=== PATIENT | female | born 1970 | race Caucasian/White ===

== ENCOUNTER 2017-06-09 18:32 | Emergency (ER) | payer BC ==
[~2017-06-09] VITALS: Ht 172.7 cm; Wt 85.3 kg
--- NOTE | 2017-06-09 19:29 | PHYS DOC ---
Past Medical History Past Medical History: Kidney Stone Adult General Chief Complaint Chief Complaint: FLANK PAIN HPI HPI Patient is a 47 year old female presents to the emergency department with complaints of right flank pain. Patient states she was at work when she had acute onset of right flank pain. She states that is sensate with mild nausea. She states she does have a history of renal stones and was told that "the stone was so big he did not want remove her from my kidney". Patient reports no fever. No urinary symptoms. Review of Systems Review of Systems Constitutional: Denies fever or chills [] Eyes: Denies change in visual acuity, redness, or eye pain [] HENT: Denies nasal congestion or sore throat [] Respiratory: Denies cough or shortness of breath [] Cardiovascular: No additional information not addressed in HPI [] GI: Denies abdominal pain, complain of mild nausea without vomiting : Flank pain, Denies dysuria or hematuria [] Musculoskeletal: Denies back pain or joint pain [] Integument: Denies rash or skin lesions [] Neurologic: Denies headache, focal weakness or sensory changes [] Endocrine: Denies polyuria or polydipsia [] All other systems were reviewed and found to be within normal limits, except as documented in this note. Current Medications Current Medications Current Medications Medications (Trade) Dose Ordered Sig/Indra Start Time Stop Time Status Last Admin Dose Admin Ketorolac Tromethamine (Toradol) 30 mg 1X ONCE 06/09/17 19:30 06/09/17 19:31 DC 06/09/17 19:42 30 MG Ondansetron HCl (Zofran) 4 mg 1X ONCE 06/09/17 19:30 06/09/17 19:31 DC 06/09/17 19:43 4 MG Sodium Chloride 1,000 ml @ 1,000 mls/hr 1X ONCE 06/09/17 19:30 06/09/17 20:29 DC 06/09/17 19:42 1,000 MLS/HR Allergies Allergies Allergies Coded Allergies Type Severity Reaction Last Updated Verified Penicillins Allergy Intermediate 11/24/14 Yes Physical Exam Physical Exam Constitutional: Well developed, well nourished Neck: Normal range of motion, no tenderness, supple, no stridor. [] Cardiovascular:Heart rate regular rhythm, no murmur [] Lungs & Thorax: Bilateral breath sounds clear to auscultation [] Abdomen: Bowel sounds normal, soft, no tenderness, no masses, no pulsatile masses. [] Skin: Warm, dry, no erythema, no rash. [] Back: No tenderness, right CVA tenderness Neurologic: Alert and oriented X 3, normal motor function, normal sensory function, no focal deficits noted. [] Current Patient Data Vital Signs Vital Signs Date Time Temp Pulse Resp B/P (MAP) Pulse Ox O2 Delivery O2 Flow Rate FiO2 06/09/17 21:05 54 13 166/80 (108) 98 Room Air 06/09/17 19:48 98.4 98.4 Lab Values Laboratory Tests Test 06/09/17 19:25 06/09/17 19:40 Urine Collection Type Unknown Urine Color Yellow Urine Clarity Clear Urine pH 5.5 Urine Specific [place] >=1.030 Urine Protein 30 mg/dL (NEG-TRACE) Urine Glucose (UA) Negative mg/dL (NEG) Urine Ketones (Stick) Negative mg/dL (NEG) Urine Blood Large (NEG) Urine Nitrite Negative (NEG) Urine Bilirubin Negative (NEG) Urine Urobilinogen Dipstick 0.2 mg/dL (0.2 mg/dL) Urine Leukocyte Esterase Negative (NEG) Urine RBC 3-5 /HPF (0-2) Urine WBC Occ /HPF (0-4) Urine Squamous Epithelial Cells Many /LPF Urine Bacteria Few /HPF (0-FEW) Urine Hyaline Casts Occasional /HPF Urine Mucus Marked /LPF White Blood Count 13.4 x10^3/uL (4.0-11.0) H Red Blood Count 4.13 x10^6/uL (3.50-5.40) Hemoglobin 13.0 g/dL (12.0-15.5) Hematocrit 38.9 % (36.0-47.0) Mean Corpuscular Volume 94 fL (79-100) Mean Corpuscular Hemoglobin 32 pg (25-35) Mean Corpuscular Hemoglobin Concent 34 g/dL (31-37) Red Cell Distribution Width 12.8 % (11.5-14.5) Platelet Count 294 x10^3/uL (140-400) Neutrophils (%) (Auto) 77 % (31-73) H Lymphocytes (%) (Auto) 13 % (24-48) L Monocytes (%) (Auto) 8 % (0-9) Eosinophils (%) (Auto) 2 % (0-3) Basophils (%) (Auto) 1 % (0-3) Neutrophils # (Auto) 10.4 x10^3uL (1.8-7.7) H Lymphocytes # (Auto) 1.7 x10^3/uL (1.0-4.8) Monocytes # (Auto) 1.0 x10^3/uL (0.0-1.1) Eosinophils # (Auto) 0.2 x10^3/uL (0.0-0.7) Basophils # (Auto) 0.1 x10^3/uL (0.0-0.2) Sodium Level 140 mmol/L (136-145) Potassium Level 3.9 mmol/L (3.5-5.1) Chloride Level 103 mmol/L (98-107) Carbon Dioxide Level 25 mmol/L (21-32) Anion Gap 12 (6-14) Blood Urea Nitrogen 31 mg/dL (7-20) H Creatinine 1.8 mg/dL (0.6-1.0) H Estimated GFR (Cockcroft-Gault) 29.9 BUN/Creatinine Ratio 17 (6-20) Glucose Level 110 mg/dL (70-99) H Calcium Level 9.1 mg/dL (8.5-10.1) Total Bilirubin 0.3 mg/dL (0.2-1.0) Aspartate Amino Transferase (AST) 18 U/L (15-37) Alanine Aminotransferase (ALT) 22 U/L (14-59) Alkaline Phosphatase 84 U/L (46-116) Total Protein 7.6 g/dL (6.4-8.2) Albumin 3.6 g/dL (3.4-5.0) Albumin/Globulin Ratio 0.9 (1.0-1.7) L Laboratory Tests 06/09/17 19:40 Laboratory Tests 06/09/17 19:40 EKG EKG [] Radiology/Procedures Radiology/Procedures [][facility] [address] [place], [place] [id number] IMAGING REPORT Signed PATIENT: ROBERTA ELMORE ACCOUNT: [id number] : 1970 LOCATION: ER AGE: 47 SEX: F EXAM STATUS: REG ER ORD. PHYSICIAN: GRACY MARIE APRN REASON: right flank pain, hematuria PROCEDURE: CT ABDOMEN PELVIS WO CONTRAST Abdominal and Pelvis CT, Without Contrast: History: Right flank pain. Comparison: August 17, 2011. Procedure: Axial images are obtained of the abdomen and pelvis, without IV or oral contrast. CT Abdomen without Contrast: Findings: Evaluation of solid organs is limited without contrast. Evaluation of stomach and bowel is limited without oral contrast. Liver: Normal. Spleen: Normal. Pancreas: Normal. Adrenal Glands: Normal. Kidneys: There is an 11 mm stone in the right UPJ with moderate hydronephrosis and perinephric edema. This appears similar to the prior study. There is no free air or free fluid. There is no lymphadenopathy. Impression: Please see CT Pelvis without Contrast. End Impression. CT Pelvis without Contrast: Findings: The urinary bladder appears normal. There is no free fluid. There is no lymphadenopathy. There is no pericolonic inflammation identified. The urinary bladder is collapsed not well evaluated. The appendix is not well seen. Impression: 11 mm stone right UPJ with moderate hydronephrosis and perinephric edema. End impression PQRS Compliance Statement: One or more of the following individualized dose reduction techniques were utilized for this examination: 1. Automated exposure control 2. Adjustment of the mA and/or kV according to patient size 3. Use of iterative reconstruction technique Electronically signed by: Thomas Kulkarni III, MD (06/09/2017 8:58 PM) [facility] DICTATED and SIGNED BY: THOMAS KULKARNI III, MD DATE: 06/09/172050 CC: TALI BAR MD; GRACY MARIE APRN ~ Course & Med Decision Making Course & Med Decision Making Patient received Toradol 30 mg IV, 1 L normal saline for complete relief of pain. Her CT abdomen and is unchanged compared to her CT abdomen and pelvis in August 2011. She does have an 11 mm stone at the right UPJ with moderate hydronephrosis and perinephric neck edema. This is unchanged from her previous CT. At this time the patient elects to be discharged home with plan for follow- up outpatient urology. She is advised return to the emergency department his symptoms or concerns or worsening of current condition. She'll be discharged home with Naprosyn which she currently has a prescription for and Tylenol with codeine, one by mouth every 6 hours when necessary for pain. She'll referred to urology at [facility] as her previous urologist is no longer practicing in the area. Pertinent Labs and Imaging studies reviewed. ( See chart for details) [] Dragon Disclaimer Dragon Disclaimer This electronic medical record was generated, in whole or in part, using a voice recognition dictation system. Departure Departure Impression: Primary Impression: Renal lithiasis Disposition: HOME, SELF-CARE Condition: STABLE Referrals: TALI BAR MD (PCP) Patient Instructions: Kidney Stones Scripts Acetaminophen With Codeine (TYLENOL WITH CODEINE #3 TABLET) 1 Each Tablet 1 TAB PO PRN Q6HRS Y for PAIN, #12 TAB Prov: GRACY MARIE APRN 06/09/17 GRAYC MARIE APRN Jun 09, 2017 19:29
[2017-06-09] MEDS ORDERED: IV NORMAL SALINE 1000ML BAG 1,000 ML IV ONE (19:30)
[2017-06-09] MEDS ORDERED: ONDANSETRON PF 4 MG/2 ML VIAL. IV ONE (19:30)
[2017-06-09] MEDS ORDERED: KETOROLAC 30 MG/ML INJ. IV ONE (19:30)
[2017-06-09 19:35] LABS: BILIRUBIN,URINE NEGATIVE (NEG); GLUCOSE,URINE NEGATIVE (NEG); NITRITE,URINE NEGATIVE (NEG); PH,URINE 5.5; PROTEIN,URINE 30 mg/dL (NEG-TRACE); UROBILINOGEN,URINE 0.2 mg/dL (0.2 mg/dL)
[2017-06-09 19:48] LABS: BACTERIA,URINE FEW /HPF (0-FEW); SQUAMOUS EPITHELIAL CELL,UR MANY /LPF; WBC,URINE OCC /HPF (0-4)
[2017-06-09 20:05] LABS: BASO # 0.1 x10^3/uL (0.0-0.2); BASO % 1 % (0-3); EOS % 2 % (0-3); HEMATOCRIT 38.9 % (36.0-47.0); LYMPH # 1.7 x10^3/uL (1.0-4.8); LYMPH % 13 % (24-48); MEAN CORPUSCULAR HEMOGLOBIN 32 pg (25-35); MEAN CORPUSCULAR HGB CONC 34 g/dL (31-37); MEAN CORPUSCULAR VOLUME 94 fL (79-100); MONO % 8 % (0-9); NEUT % 77 % (31-73); PLATELET COUNT 294 x10^3/uL (140-400); RED BLOOD COUNT 4.13 x10^6/uL (3.50-5.40); RED CELL DISTRIBUTION WIDTH 12.8 % (11.5-14.5); WHITE BLOOD COUNT 13.4 x10^3/uL (4.0-11.0)
[2017-06-09 20:48] LABS: CALCIUM 9.1 mg/dL (8.5-10.1); CREATININE 1.8 mg/dL (0.6-1.0); GFR 29.9; POTASSIUM 3.9 mmol/L (3.5-5.1)
[2017-06-09 20:59] LABS: ALBUMIN 3.6 g/dL (3.4-5.0); ALBUMIN/GLOBULIN RATIO 0.9 (1.0-1.7); TOTAL BILIRUBIN 0.3 mg/dL (0.2-1.0); TOTAL PROTEIN 7.6 g/dL (6.4-8.2)
--- NOTE | 2017-06-09 21:01 | RAD ---
Abdominal and Pelvis CT, Without Contrast: History: Right flank pain. Comparison: August 17, 2011. Procedure: Axial images are obtained of the abdomen and pelvis, without IV or oral contrast. CT Abdomen without Contrast: Findings: Evaluation of solid organs is limited without contrast. Evaluation of stomach and bowel is limited without oral contrast. Liver: Normal. Spleen: Normal. Pancreas: Normal. Adrenal Glands: Normal. Kidneys: There is an 11 mm stone in the right UPJ with moderate hydronephrosis and perinephric edema. This appears similar to the prior study. There is no free air or free fluid. There is no lymphadenopathy. Impression: Please see CT Pelvis without Contrast. End Impression. CT Pelvis without Contrast: Findings: The urinary bladder appears normal. There is no free fluid. There is no lymphadenopathy. There is no pericolonic inflammation identified. The urinary bladder is collapsed not well evaluated. The appendix is not well seen. Impression: 11 mm stone right UPJ with moderate hydronephrosis and perinephric edema. End impression PQRS Compliance Statement: One or more of the following individualized dose reduction techniques were utilized for this examination: 1. Automated exposure control 2. Adjustment of the mA and/or kV according to patient size 3. Use of iterative reconstruction technique Electronically signed by: Juan Luis Fall III, MD (06/09/2017 8:58 PM) [facility]
[2017-06-09 21:05] VITALS: BP 166/80
[2017-06-09] MEDS ORDERED: ACET-704 PO (21:29)
== END 2017-06-09 21:40 | disposition home or self-care (01) ==
LOC: ER 18:32
DX: N20.0 Calculus of kidney (principal); Z87.442 Personal history of urinary calculi; Z88.0 Allergy status to penicillin
CPT/HCPCS: 36415; 74176; 80053; 81001; 85025; 96361; 96374; 96375; 99285; J1885; J2405; J7030

== ENCOUNTER → 2019-04-05 | Day surgery (SDC) | payer BC, OTHER ==
[~2019-04-05] VITALS: Ht 172.7 cm; Wt 86.0 kg
[~2019-04-05] MED LIST: ACET-704 PO; ALBU2.5V8 INH; ASPI1TAB31 PO; BUPIVACAINE MPF 0.25% 30 ML VIAL. ONE; BUPIVACAINE-EPI 0.25%-1:200000 MPF 30 ML VIAL. INJ ONE; CLINDAMYCIN 900MG PREMIX 50 ML IV ONE; FLUT9.9S NS; HYDR-3164 PO; HYDROmorphone 2 MG/ML VIAL IV PRN; IV RINGERS,LACTATED 1000ML 1,000 ML IV SCH; LIDOCAINE 1% PF 2 ML VIAL. ID PRN; LIDOCAINE 1% PF 30 ML VIAL. ONE; LISI10TA2 PO; MIDAZOLAM HCL/PF 2 MG/2 ML VIAL. ONE; MORPHINE SULFATE 2 MG/ML VIAL. IV PRN; ONDANSETRON PF 4 MG/2 ML VIAL. IV PRN; PROCHLORPERAZINE 10 MG/2 ML VIAL. IV PRN; PROPOFOL 20 ML IV ONE; PROPOFOL 50 ML IV ONE; RANI-376 PO; VANCOMYCIN 1GM IVPB FOR OMNI 250 ML IV PRN; fentaNYL PF VIAL 100 MCG/2 ML VIAL IV PRN
--- NOTE | 2019-04-05 08:33 | DISCH ---
DISCHARGE INSTRUCTIONS Condition on Discharge Condition on Discharge: Stable Activity After Discharge Activity Instructions for Disc: Other, see below (avoid hard grasp for next 2 weeks) Weight Bearing Status after Di: As tolerated Diet after Discharge Diet after Discharge: Regular Wound Incision Care Wound/Incision Care: Ice to area for comfort, Keep wound elevated, Do not change dressing (keep dressing clean and dry) Contacting the after DC Call your doctor for: Concerns you may have Follow-Up Follow up with: Dr. Lucia 2 weeks ALESSANDRA LUCIA MD Apr 05, 2019 08:33
[2019-04-05 08:35] VITALS: BP 130/77
--- NOTE | 2019-04-05 09:02 | PDOC4 ---
Operative Note Operative Note Date of surgery: 04/05/2019 Preoperative diagnosis: Right carpal tunnel syndrome and ganglion cyst right hand Postoperative diagnosis: Same with ganglion cyst originating from third finger flexor tendon sheath at A1 siena Operative procedure: Right carpal tunnel release excision ganglion cyst and trigger finger release third finger Surgeon: Khari Anesthesia: Fausto block Estimated blood loss: 2 mL Complications: None Specimens: Ganglion cyst to pathology Operative indications: Dominique has EMG documented carpal tunnel syndrome symptoms unresponsive to nonoperative management and a painful lump in the third to fourth webspace in her hand worse with grasping. It is suspicious for a ganglion cyst we went over possible operative treatments including a carpal tunnel release exploration and excision of the ganglion cyst and sending enough to pathology. We talked about the possibility of infection nerve or blood vessel damage and complete relief among other issues all her questions were answered she wishes to proceed with surgical evaluation and treatment. Text patient was identified procedure verified patient placed in supine position on the operating table. After adequate amounts of Fausto block anesthesia were administered the right upper extremity is prepped and draped in standard sterile fashion. After timeout was performed patient procedure identified and verified a longitudinal incision was made just distal to the distal palmar crease dissect ion carried out down to the transverse carpal ligament which was transected. Median nerve was noted to have moderate compression no synovitis associated with the flexor tendons complete release was verified both visually and palpably. A longitudinal incision was likewise made over the right hand mass and it was found to be a ganglion cyst originating from the third finger flexor tendon sheath in the area of the A1 siena. A trigger finger release was performed and the A1 siena along with the ganglion cyst wall was excised sharply carefully avoiding any neurovascular structures bleeding points were controlled by electrocautery thorough irrigation carried out normal saline solution both carpal tunnel and the ganglion incision were closed with nylon suture sterile dressings were applied fingers are noted be warm pink find deflation of tourniquet patient was returned to recovery room in stable condition having tolerated procedure well ALESSANDRA CRESPO MD Apr 05, 2019 09:02
--- NOTE | 2019-04-08 15:07 | PATHOLOGY ---
[facility] Accession Number: [id number] . 01 Material submitted: . hand - RIGHT HAND GANGLION CYST. Modifiers: right . 01 Clinical history: . Right hand pain . 02 Diagnosis: Segment of dense fibroconnective and fibroadipose tissue, right hand: - Ganglion cyst. (JPM/db; 04/08/2019) LBQ 04/08/2019 1010 Local . 02 Electronically signed: . Ashok Villeda MD, Pathologist NPI- [id number] . 01 Gross description: . Received in formalin labeled "Dominique Valdes, right hand ganglion cyst," is a segment of pale-durán soft tissue measuring 1.3 x 0.6 x 0.4 cm. The specimen is inked, longitudinally bisected, and entirely submitted in cassette A1. Upon sectioning, no underlying cystic cavity is grossly evident. (TSD; 04/05/2019) . TOB/TOB 04/05/2019 1731 Local . 02 Pathologist provided ICD-10: M67.441 . 02 CPT . 058108 Specimen Comment: A courtesy copy of this report has been sent to Specimen Comment: [phone], . Specimen Comment: Report sent to / DR BAR Performed at: 01 [facility] [address], [place], [place] [id number] MD Nicholas Myers MD Phone: [phone] Performed at: 02 [facility] [address], [place] [id number] MD Ashok Villeda MD Phone: [phone]
== END ==
LOC: SURG 06:00
PROVIDERS: ATTEND Orthopaedic Surgery
DX: G56.01 Carpal tunnel syndrome, right upper limb (principal); M67.441 Ganglion, right hand; M65.331 Trigger finger, right middle finger; J45.909 Unspecified asthma, uncomplicated; I12.9 Hypertensive chronic kidney disease with stage 1 through stage 4 chronic kidney disease, or unspecified chronic kidney disease; N18.3 Chronic kidney disease, stage 3 (moderate); E78.5 Hyperlipidemia, unspecified; Z87.442 Personal history of urinary calculi; Z98.890 Other specified postprocedural states; Z72.89 Other problems related to lifestyle; Z91.041 Radiographic dye allergy status
CPT/HCPCS: 26055; 26160; 64721; 81025; 88304; J2250; J2704; J3490

== ENCOUNTER 2019-04-15 19:39 | Emergency (ER) | payer BC, OTHER ==
[~2019-04-15] VITALS: Ht 172.7 cm; Wt 86.2 kg
[~2019-04-15 19:39] MED LIST changes: -BUPIVACAINE MPF 0.25% 30 ML VIAL. ONE; -BUPIVACAINE-EPI 0.25%-1:200000 MPF 30 ML VIAL. INJ ONE; -CLINDAMYCIN 900MG PREMIX 50 ML IV ONE; -HYDROmorphone 2 MG/ML VIAL IV PRN; -IV RINGERS,LACTATED 1000ML 1,000 ML IV SCH; -LIDOCAINE 1% PF 2 ML VIAL. ID PRN; -LIDOCAINE 1% PF 30 ML VIAL. ONE; -MIDAZOLAM HCL/PF 2 MG/2 ML VIAL. ONE; -MORPHINE SULFATE 2 MG/ML VIAL. IV PRN; -ONDANSETRON PF 4 MG/2 ML VIAL. IV PRN; -PROCHLORPERAZINE 10 MG/2 ML VIAL. IV PRN; -PROPOFOL 20 ML IV ONE; -PROPOFOL 50 ML IV ONE; -VANCOMYCIN 1GM IVPB FOR OMNI 250 ML IV PRN; -fentaNYL PF VIAL 100 MCG/2 ML VIAL IV PRN
[2019-04-15 20:47] LABS: BILIRUBIN,URINE NEGATIVE (NEG); CLARITY,URINE CLEAR; COLOR,URINE YELLOW; NITRITE,URINE NEGATIVE (NEG); PH,URINE 5.5; PROTEIN,URINE NEGATIVE (NEG-TRACE); UROBILINOGEN,URINE 0.2 mg/dL (0.2 mg/dL)
[2019-04-15 20:52] LABS: BACTERIA,URINE FEW /HPF (0-FEW); SQUAMOUS EPITHELIAL CELL,UR OCC /LPF
[2019-04-15 20:53] LABS: BARBITURATES NEG (NEG); BENZODIAZEPINES NEG (NEG); CANNABINOIDS NEG (NEG); COCAINE NEG (NEG); METHADONE NEG (NEG); OPIATES NEG (NEG); PHENCYCLIDINE NEG (NEG)
[2019-04-15 20:54] LABS: AMPHETAMINE/METHAMPHETAMINE NEG (NEG)
[2019-04-15 20:56] LABS: BASO # 0.1 x10^3/uL (0.0-0.2); BASO % 1 % (0-3); EOS # 0.3 x10^3/uL (0.0-0.7); EOS % 3 % (0-3); HEMATOCRIT 38.8 % (36.0-47.0); HEMOGLOBIN 13.2 g/dL (12.0-15.5); LYMPH # 1.6 x10^3/uL (1.0-4.8); LYMPH % 17 % (24-48); MEAN CORPUSCULAR HEMOGLOBIN 32 pg (25-35); MEAN CORPUSCULAR HGB CONC 34 g/dL (31-37); MEAN CORPUSCULAR VOLUME 94 fL (79-100); MONO # 0.6 x10^3/uL (0.0-1.1); MONO % 6 % (0-9); NEUT # 7.2 x10^3/uL (1.8-7.7); NEUT % 74 % (31-73); PLATELET COUNT 275 x10^3/uL (140-400); RED BLOOD COUNT 4.15 x10^6/uL (3.50-5.40); WHITE BLOOD COUNT 9.8 x10^3/uL (4.0-11.0)
[2019-04-15 21:06] LABS: CALCIUM 9.3 mg/dL (8.5-10.1); CREATININE 1.2 mg/dL (0.6-1.0); GFR 47.6; POTASSIUM 4.3 mmol/L (3.5-5.1)
[2019-04-15 21:11] LABS: ALBUMIN 3.8 g/dL (3.4-5.0); TOTAL BILIRUBIN 0.3 mg/dL (0.2-1.0); TOTAL PROTEIN 7.5 g/dL (6.4-8.2)
--- NOTE | 2019-04-15 21:38 | RAD ---
Exam: CT head INDICATION: Altered mental status TECHNIQUE: Sequential axial images through the head were obtained without the administration of IV contrast. Comparisons: None FINDINGS: No focal parenchymal lesion or hemorrhage is identified. There is no midline shift or sulcal effacement. No acute vascular territory infarction is identified. Hunter-white distinction is preserved. The ventricular system is within normal limits without compression hydrocephalus. The basal cisterns are well maintained. The visualized portions of the paranasal sinuses and mastoid air cells are well-pneumatized. No acute fractures. IMPRESSION: No acute intracranial abnormality. Exposure: One or more of the following in the visualized dose reduction techniques were utilized for this examination: 1. Automated exposure control 2. Adjustment of the MA and/or KV according to patient size Use of iterative of reconstructive technique Electronically signed by: River Doe MD (04/15/2019 9:35 PM) [facility]
--- NOTE | 2019-04-15 22:35 | PHYS DOC ---
Past Medical History Past Medical History: Hypertension, Kidney Stone Additional Past Medical Histor: Asthma Past Surgical History: Tubal ligation, Other Additional Past Surgical Histo: kidney stents 2011; uterine ablation, right hand carpal tunnel Alcohol Use: Occasionally Drug Use: None Adult General Chief Complaint Chief Complaint: ALTERED MENTAL STATUS [facility] HPI 48-year-old female with a history of esophageal stricture presents with a brief episode of altered mental status. Family states that she did get choked and had a coughing spell tonight and shortly thereafter seemed confused asking repetitive questions. She denied any headache or lateralizing neurologic weakn ess. There was no gait or speech disturbance. Family states they became concerned and brought her here for evaluation. Patient states she feels back to normal now. She states she felt like she had just woken up from sleep.[] Review of Systems Review of Systems Constitutional: Denies fever or chills [] Eyes: Denies change in visual acuity, redness, or eye pain [] HENT: Denies nasal congestion or sore throat [] Respiratory: Denies cough or shortness of breath [] Cardiovascular: No additional information not addressed in HPI [] GI: Denies abdominal pain, nausea, vomiting, bloody stools or diarrhea [] : Denies dysuria or hematuria [] Musculoskeletal: Denies back pain or joint pain [] Integument: Denies rash or skin lesions [] Neurologic: Per history of present illness[] Endocrine: Denies polyuria or polydipsia [] All other systems were reviewed and found to be within normal limits, except as documented in this note. Allergies Allergies Allergies Coded Allergies Type Severity Reaction Last Updated Verified Iodinated Contrast Media Allergy Intermediate HIVES, ITCHING 04/05/19 Yes Penicillins Allergy Intermediate HIVES, ITCHING 04/05/19 Yes Physical Exam Physical Exam Constitutional: Well developed, well nourished, no acute distress, non-toxic appearance. [] HENT: Normocephalic, atraumatic, bilateral external ears normal, oropharynx moist, no oral exudates, nose normal. [] Eyes: PERRLA, EOMI, conjunctiva normal, no discharge. [] Neck: Normal range of motion, no tenderness, supple, no stridor. [] Cardiovascular:Heart rate regular rhythm, no murmur [] Lungs & Thorax: Bilateral breath sounds clear to auscultation [] Abdomen: Bowel sounds normal, soft, no tenderness, no masses, no pulsatile masses. [] Skin: Warm, dry, no erythema, no rash. [] Back: No tenderness, no CVA tenderness. [] Extremities: No tenderness, no cyanosis, no clubbing, ROM intact, no edema. [] Neurologic: Alert and oriented X 3, normal motor function, normal sensory function, no focal deficits noted. [] Psychologic: Very flat affect[] Current Patient Data Vital Signs Vital Signs Date Time Temp Pulse Resp B/P (MAP) Pulse Ox O2 Delivery O2 Flow Rate FiO2 04/15/19 21:40 68 18 96 04/15/19 19:48 98.6 169/89 (115) Room Air 98.6 Lab Values Laboratory Tests Test 04/15/19 20:40 04/15/19 20:50 Urine Color Yellow Urine Clarity Clear Urine pH 5.5 Urine Specific [place] 1.015 Urine Protein Negative mg/dL (NEG-TRACE) Urine Glucose (UA) Negative mg/dL (NEG) Urine Ketones (Stick) Negative mg/dL (NEG) Urine Blood Moderate (NEG) Urine Nitrite Negative (NEG) Urine Bilirubin Negative (NEG) Urine Urobilinogen Dipstick 0.2 mg/dL (0.2 mg/dL) Urine Leukocyte Esterase Negative (NEG) Urine RBC 3-5 /HPF (0-2) Urine WBC 1-4 /HPF (0-4) Urine Squamous Epithelial Cells Occ /LPF Urine Bacteria Few /HPF (0-FEW) Urine Mucus Mod /LPF Urine Opiates Screen Neg (NEG) Urine Methadone Screen Neg (NEG) Urine Barbiturates Neg (NEG) Urine Phencyclidine Screen Neg (NEG) Urine Amphetamine/Methamphetamine Neg (NEG) Urine Benzodiazepines Screen Neg (NEG) Urine Cocaine Screen Neg (NEG) Urine Cannabinoids Screen Neg (NEG) Urine Ethyl Alcohol Neg (NEG) White Blood Count 9.8 x10^3/uL (4.0-11.0) Red Blood Count 4.15 x10^6/uL (3.50-5.40) Hemoglobin 13.2 g/dL (12.0-15.5) Hematocrit 38.8 % (36.0-47.0) Mean Corpuscular Volume 94 fL (79-100) Mean Corpuscular Hemoglobin 32 pg (25-35) Mean Corpuscular Hemoglobin Concent 34 g/dL (31-37) Red Cell Distribution Width 14.0 % (11.5-14.5) Platelet Count 275 x10^3/uL (140-400) Neutrophils (%) (Auto) 74 % (31-73) H Lymphocytes (%) (Auto) 17 % (24-48) L Monocytes (%) (Auto) 6 % (0-9) Eosinophils (%) (Auto) 3 % (0-3) Basophils (%) (Auto) 1 % (0-3) Neutrophils # (Auto) 7.2 x10^3/uL (1.8-7.7) Lymphocytes # (Auto) 1.6 x10^3/uL (1.0-4.8) Monocytes # (Auto) 0.6 x10^3/uL (0.0-1.1) Eosinophils # (Auto) 0.3 x10^3/uL (0.0-0.7) Basophils # (Auto) 0.1 x10^3/uL (0.0-0.2) Sodium Level 142 mmol/L (136-145) Potassium Level 4.3 mmol/L (3.5-5.1) Chloride Level 105 mmol/L (98-107) Carbon Dioxide Level 27 mmol/L (21-32) Anion Gap 10 (6-14) Blood Urea Nitrogen 25 mg/dL (7-20) H Creatinine 1.2 mg/dL (0.6-1.0) H Estimated GFR (Cockcroft-Gault) 47.6 BUN/Creatinine Ratio 21 (6-20) H Glucose Level 104 mg/dL (70-99) H Calcium Level 9.3 mg/dL (8.5-10.1) Total Bilirubin 0.3 mg/dL (0.2-1.0) Aspartate Amino Transferase (AST) 19 U/L (15-37) Alanine Aminotransferase (ALT) 16 U/L (14-59) Alkaline Phosphatase 77 U/L (46-116) Total Protein 7.5 g/dL (6.4-8.2) Albumin 3.8 g/dL (3.4-5.0) Albumin/Globulin Ratio 1.0 (1.0-1.7) Laboratory Tests 04/15/19 20:50 Laboratory Tests 04/15/19 20:50 EKG EKG [] Radiology/Procedures Radiology/Procedures [] Impressions: REASON: altered mental status PROCEDURE: CT HEAD WO CONTRAST Exam: CT head INDICATION: Altered mental status TECHNIQUE: Sequential axial images through the head were obtained without the administration of IV contrast. Comparisons: None FINDINGS: No focal parenchymal lesion or hemorrhage is identified. There is no midline shift or sulcal effacement. No acute vascular territory infarction is identified. Hunter-white distinction is preserved. The ventricular system is within normal limits without compression hydrocephalus. The basal cisterns are well maintained. The visualized portions of the paranasal sinuses and mastoid air cells are well-pneumatized. No acute fractures. IMPRESSION: No acute intracranial abnormality. Course & Med Decision Making Course & Med Decision Making Pertinent Labs and Imaging studies reviewed. (See chart for details) [ED course: Evaluation reveals a 48-year-old female in no apparent distress. Her mentation has cleared. Her CT scan and laboratory studies were unrevealing. I suspect she may have had some sort of a vasovagal episode after her choking spell. I do not believe this is related to an acute neurologic event such as a stroke or TIA. I've discussed this with the family and they feel comfortable going home. Dragon Disclaimer Dragon Disclaimer This electronic medical record was generated, in whole or in part, using a voice recognition dictation system. Departure Departure Impression: Primary Impression: Altered mental status Disposition: 01 HOME, SELF-CARE Condition: IMPROVED Referrals: TALI BAR MD (PCP) Patient Instructions: Altered Mental Status Additional Instructions: Follow with Dr. Frye this week for recheck. Return to the emergency department with any new or concerning symptoms Problem Qualifiers Primary Impression: Altered mental status Altered mental status type: unspecified Qualified Codes: R41.82 - Altered mental status, unspecified AMY PÉREZ DO Apr 15, 2019 22:35
[2019-04-15 22:40] VITALS: BP 150/81
== END 2019-04-15 22:48 | disposition home or self-care (01) ==
LOC: ER 19:39
DX: R41.82 Altered mental status, unspecified (principal); I10 Essential (primary) hypertension; J45.909 Unspecified asthma, uncomplicated; Z87.442 Personal history of urinary calculi; Z98.51 Tubal ligation status; Z88.0 Allergy status to penicillin; Z91.041 Radiographic dye allergy status
CPT/HCPCS: 36415; 70450; 80053; 80307; 81001; 85025; 99285-25

== ENCOUNTER → 2019-05-14 | Day surgery (SDC) | payer BC, OTHER ==
[~2019-05-14] MED LIST changes: +HYDROmorphone 2 MG/ML VIAL IV PRN; +IV RINGERS,LACTATED 1000ML 1,000 ML IV SCH; +LIDOCAINE 1% PF 2 ML VIAL. ID PRN; +LIDOCAINE 2% PF 5 ML VIAL. ONE; +MORPHINE SULFATE 2 MG/ML VIAL. IV PRN; +ONDANSETRON PF 4 MG/2 ML VIAL. IV PRN; +PROCHLORPERAZINE 10 MG/2 ML VIAL. IV PRN; +PROPOFOL 40 ML IV ONE; +fentaNYL PF VIAL 100 MCG/2 ML VIAL IV PRN
[2019-05-14 17:44] VITALS: BP 170/77
== END ==
LOC: ENDOS 15:47
PROVIDERS: ATTEND Internal Medicine Gastroenterology
DX: K59.00 Constipation, unspecified (principal); K22.2 Esophageal obstruction; K64.0 First degree hemorrhoids; K63.89 Other specified diseases of intestine; J45.909 Unspecified asthma, uncomplicated; K21.9 Gastro-esophageal reflux disease without esophagitis; I10 Essential (primary) hypertension; G43.909 Migraine, unspecified, not intractable, without status migrainosus; F15.90 Other stimulant use, unspecified, uncomplicated; E66.3 Overweight; Z68.27 Body mass index [BMI] 27.0-27.9, adult; Z91.041 Radiographic dye allergy status; Z72.89 Other problems related to lifestyle; Z87.442 Personal history of urinary calculi; Z98.890 Other specified postprocedural states; Z98.51 Tubal ligation status
CPT/HCPCS: 43235; 43450; 45378; J2001; J2704

== ENCOUNTER → 2020-06-18 | Outpatient (CLI) | payer OTHER ==
[2019-05-14 17:44] VITALS: BP 170/77
[~2020-06-18] MED LIST changes: -HYDROmorphone 2 MG/ML VIAL IV PRN; -IV RINGERS,LACTATED 1000ML 1,000 ML IV SCH; -LIDOCAINE 1% PF 2 ML VIAL. ID PRN; -LIDOCAINE 2% PF 5 ML VIAL. ONE; -MORPHINE SULFATE 2 MG/ML VIAL. IV PRN; -ONDANSETRON PF 4 MG/2 ML VIAL. IV PRN; -PROCHLORPERAZINE 10 MG/2 ML VIAL. IV PRN; -PROPOFOL 40 ML IV ONE; -fentaNYL PF VIAL 100 MCG/2 ML VIAL IV PRN
--- NOTE | 2020-06-18 16:39 | KCIC ---
EXAM: AP, oblique and lateral views of both feet Axial and lateral views of the bilateral calcaneus. DATE: 06/18/2020 2:26 PM INDICATION: Reason: PAIN IN LEFT AND RIGHT FOOT / Spl. Instructions: Bilateral foot and heel pain for over 1 yr. COMPARISON: No Prior FINDINGS: No acute fracture or dislocation. Joint spaces are grossly preserved. Midfoot degenerative changes of the right foot are seen with small osteophytes. Joint spaces are grossly preserved without significa nt proliferative change within the left foot. Bipartite appearance of the medial hallux MTP sesamoid. Small plantar calcaneal enthesophyte bilaterally. IMPRESSION: 1. No acute fracture or dislocation. 2. Mild left midfoot degenerative changes. Electronically signed by: Elkin Marcelino MD (06/18/2020 4:37 PM) [facility]
== END ==
LOC: KCIC 14:22
PROVIDERS: ATTEND Family Medicine
DX: M19.072 Primary osteoarthritis, left ankle and foot (principal); M19.071 Primary osteoarthritis, right ankle and foot; M25.775 Osteophyte, left foot; M25.774 Osteophyte, right foot; M77.32 Calcaneal spur, left foot; M77.31 Calcaneal spur, right foot
CPT/HCPCS: 73630; 73650

== ENCOUNTER → 2020-10-19 | Outpatient (CLI) | payer OTHER ==
[2019-05-14 17:44] VITALS: BP 170/77
[~2020-10-19] MED LIST changes: +GADOTERATE 5 MMOL/10ML VIAL. IVP ONE; +GADOTERATE 7.5 MMOL/15ML VIAL. ONE; +LIDOCAINE 1% Multi-Dose 20 ML VIAL. ONE; +LISI10TA16 PO; -LISI10TA2 PO
--- NOTE | 2020-10-19 16:17 | RAD ---
EXAM: Fluoroscopically guided left glenohumeral joint injection for MRI arthrogram INDICATION: Left shoulder pain COMPARISON: None TECHNIQUE/FINDINGS: The purpose of the procedure and risks including infection, bleeding, allergic reaction, and pain wer e discussed with the patient. The patient has a history of allergy to iodinated contrast therefore no iodinated contrast was used. Informed consent was obtained. A timeout was performed. After obtaining consent, the patient was placed supine on the fluoroscopy table with the left shoulde r externally rotated. The skin overlying the left glenohumeral joint was marked, sterilized and drap ed. Superficial and deep soft tissues were anesthetized with 1% lidocaine. Utilizing fluoroscopic g uidance, a 25-gauge 1.5 inch needle was advanced into the joint. Intraarticular position was confirme d by decreased resistance while injecting. Subsequently, 13 mm of a solution containing the followin g items was instilled into the joint: 10 mL of 1% lidocaine, 10 mL of sterile saline and 0.1 mL of g adolinium. No iodinated contrast was used due to the patient's history of allergic reaction. At the end of the procedure, the needle was removed. The overlying skin was cleansed and covered wit h a bandaid. The patient tolerated the procedure well and was free of immediate complications. The p atient was transferred for the MR portion of the exam in stable condition. Total fluoroscopic time: 0.3 minutes. One image IMPRESSION: Technically successful left glenohumeral joint injection for the purposes of MR arthrogr am. No iodinated contrast was used for the injection due to the patient's history of allergic reactio n to iodinated contrast. Electronically signed by: Capri Barrett MD (10/19/2020 4:14 PM) [id number]
--- NOTE | 2020-10-20 11:53 | RAD ---
EXAM: MRI LEFT SHOULDER WITH CONTRAST INDICATION: Left shoulder pain COMPARISON: None TECHNIQUE: Multiplanar, multisequence imaging of the left shoulder after intra-articular injection of contrast, performed separately. FINDINGS: ROTATOR CUFF: There is a full-thickness tear of the anterior supraspinatus tendon at the footprint me asuring approximately 1.2 x 0.7 cm. This is superimposed on moderate supraspinatus and infraspinatus tendinopathy. Subscapularis and teres minor tendons are intact. No rotator cuff atrophy or edema. LABRUM: No discrete labral tear. BICEPS TENDON: There is an intra-articular biceps tendinopathy. ACROMIOCLAVICULAR JOINT: Mild acromioclavicular degenerative joint disease. Type II acromion. No down sloping. GLENOHUMERAL JOINT: Cartilage is intact. Alignment is normal. Small cysts and marrow edema the supras pinatus footprint. Marrow signal is otherwise normal.. OTHER: Contrast distends the joint and communicates with the subacromial-subdeltoid bursa. IMPRESSION: 1. Full-thickness tear of the anterior supraspinatus tendon. Moderate supraspinatus and infraspinatus tendinopathy. 2. Intra-articular biceps tendinopathy. Electronically signed by: Capri Barrett MD (10/20/2020 11:50 AM) [id number]
== END | disposition home or self-care (01) ==
LOC: RAD 12:26
PROVIDERS: ATTEND Orthopaedic Surgery
DX: M25.512 Pain in left shoulder (principal); M19.012 Primary osteoarthritis, left shoulder; I10 Essential (primary) hypertension; J45.909 Unspecified asthma, uncomplicated; K21.9 Gastro-esophageal reflux disease without esophagitis; Z90.710 Acquired absence of both cervix and uterus; Z98.890 Other specified postprocedural states; Z79.899 Other long term (current) drug therapy; Z88.0 Allergy status to penicillin; Z91.041 Radiographic dye allergy status
CPT/HCPCS: 20605; 20610; 73222; 77002

== ENCOUNTER → 2020-10-30 | Outpatient (CLI) | payer OTHER ==
[2019-05-14 17:44] VITALS: BP 170/77
[~2020-10-30] MED LIST changes: +CIDE300T PO; -GADOTERATE 5 MMOL/10ML VIAL. IVP ONE; -GADOTERATE 7.5 MMOL/15ML VIAL. ONE; -LIDOCAINE 1% Multi-Dose 20 ML VIAL. ONE; +OXYC1TAB19 PO; +PANT40TA77 PO
== END ==
LOC: LAB 10:28
PROVIDERS: ATTEND Orthopaedic Surgery
DX: Z01.812 Encounter for preprocedural laboratory examination (principal); Z20.822 Contact with and (suspected) exposure to COVID-19
CPT/HCPCS: U0003; U0005

== ENCOUNTER 2020-11-03 10:18 | Day surgery (SDC) | payer OTHER ==
[~2020-11-03] VITALS: Ht 172.7 cm; Wt 87.5 kg
[~2020-11-03 10:18] MED LIST changes: +CLINDAMYCIN 900MG PREMIX 50 ML IV PRN; +HYDROmorphone 2 MG/ML VIAL IVP PRN; +IV RINGERS,LACTATED 1000ML 1,000 ML IV SCH; +MORPHINE SULFATE 2 MG/ML VIAL. IVP PRN; -OXYC1TAB19 PO; +PROCHLORPERAZINE 10 MG/2 ML VIAL. IVP PRN; +fentaNYL PF VIAL 100 MCG/2 ML VIAL IVP PRN
[2020-11-03] MEDS ORDERED: SEVOFLURANE > 120 MINUTES. IH ONE (10:28)
[2020-11-03] MEDS ORDERED: PROPOFOL 10 MG/ML (20ML) VIAL. IV ONE (10:28)
[2020-11-03] MEDS ORDERED: MIDAZOLAM HCL/PF 2 MG/2 ML VIAL. ONE (10:28)
[2020-11-03] MEDS ORDERED: ONDANSETRON PF 4 MG/2 ML VIAL. ONE (10:28)
[2020-11-03] MEDS ORDERED: LIDOCAINE 2% PF 5 ML VIAL. ONE (10:28)
[2020-11-03] MEDS ORDERED: DEXAMETHASONE SOD PHOS 4 MG/ML VIAL ONE (10:29)
[2020-11-03] MEDS ORDERED: ROPIVacaine 0.5% PF 20 ML VIAL. ONE (10:40)
[2020-11-03] MEDS ORDERED: EPINEPHrine VIAL 30 MG/30 ML VIAL ONE (12:36)
[2020-11-03] MEDS ORDERED: ePHEDrine PF IN SALINE 50 MG/10 ML SYRINGE. IV ONE (13:42)
[2020-11-03] MEDS ORDERED: OXYC1TAB19 PO (15:44)
--- NOTE | 2020-11-03 15:47 | DISCH ---
DISCHARGE INSTRUCTIONS Condition on Discharge Condition on Discharge: Stable Activity After Discharge Activity Instructions for Disc: Other, see below (No active lifting elbow away from body, may do fine motor use with elbow at side such as eating writing and typing) Weight Bearing Status after Di: Non weight bearing (Wear immobilizer at all times if sleeping. May remove during the day to hang the arm down do gentle pendulum exercises or fine motor use with elbow at the side) Diet after Discharge Diet after Discharge: Regular Wound Incision Care Wound/Incision Care: Ice to area for comfort, Change dressing (May remove dressing in 2 days may then shower no soaking until sutures removed) Community/Resources/Services Services at Discharge: PT EVALUATE & TREAT (Passive range of motion of operative arm only for 4 weeks postoperatively for protection of rotator cuff repair) Contacting the [facility] after DC Call your doctor for: Concerns you may have Follow-Up Follow up with: Dr. Lucia or Lionel 7 to 10 days ALESSANDRA LUCIA MD Nov 03, 2020 15:47
--- NOTE | 2020-11-03 15:55 | PDOC4 ---
Operative Note Operative Note Date of surgery: 11/03/2020 Preoperative diagnosis: Left shoulder rotator cuff tear and suspicion of superior labral tear Postoperative diagnosis: Same with actual full-thickness distal supraspinatus and superior labral fraying without biceps anchor compromise Operative procedure: Left shoulder arthroscopy arthroscopic rotator cuff repair, debridement of superior labrum Surgeon: Khari Division Officer [employer]apons Department: Bernabe malagon assist Anesthesia: General plus scalene block Estimated blood loss: 5 cc Complications: None Operative indications: Please see orthopedic clinic notes for detailed operative indications and note that patient has both pain and weakness of the left shoulder ongoing unresponsive to nonoperative management. MRI shows an apparent full-thickness supraspinatus tear and a concern for superior labral tear. We had talked about addressing any pathology present including the possibility of rotator cuff tear and potential biceps tenodesis. we also talked about the possibility of continued pain nonhealing infection nerve or blood vessel damage medical or other anesthetic complications among others and the typical postoperative restrictions and need for physical therapy and home exercises. All her questions were answered she wishes to proceed with surgical evaluation and treatment Operative text: Patient was identified procedure verified patient placed in the supine position on the operating table. After adequate amounts of general anesthesia plus a pre-existing scalene block were obtained patient was placed in the decubitus position left side up all bony prominences were well-padded and the left shoulder was prepped and draped in standard sterile fashion. She was noted to have full range of motion in all planes and no instability. She was then placed in the arthroscopic arm [place] with a total of 10 pounds of traction and after timeout was performed patient procedure identified and verified a standard posterior portal was established an anterior portal established using spinal needle localization and the shoulder joint was systematically examined. She was noted to have significant superior labral fraying which was trimmed back to stable tissue no evidence of compromise of the biceps anchor or subscapularis insertion. She did have full-thickness tear of the supraspinatus tendon at its most distal footprint. The subacromial space was then entered bursectomy was performed to allow visualization and the rotator cuff footprint was debrided ba ck to stable tissue with bleeding without decortication. A total of 2 juggernaut double loaded anchors were placed along the medial row and sutures were placed in a simple fashion. Lateral row fixation was then carried out with a Quatro link knotless anchor obtaining a watertight repair examined under all degrees of internal/external rotation shoulder motion was returned to full without instability. The joint was drained of arthroscopic fluid portals closed with nylon suture sterile dressings were applied patient was placed in immobilizer returned to recovery room stable condition having tolerated procedure well. Bernabe malagon assist was present for the procedure assisted in patient positioning prepping draping manipulation of equipment suture management closure and dressings ALESSANDRA CRESPO MD Nov 03, 2020 15:54
[2020-11-03 16:11] VITALS: BP 175/92
== END 2020-11-03 16:45 | disposition home or self-care (01) ==
LOC: SURG 10:18
PROVIDERS: ATTEND Orthopaedic Surgery
DX: S43.432A Superior glenoid labrum lesion of left shoulder, initial encounter (principal); M75.102 Unspecified rotator cuff tear or rupture of left shoulder, not specified as traumatic; I10 Essential (primary) hypertension; J45.909 Unspecified asthma, uncomplicated; K21.9 Gastro-esophageal reflux disease without esophagitis; Z98.51 Tubal ligation status; Z98.890 Other specified postprocedural states; Z79.899 Other long term (current) drug therapy; Z91.041 Radiographic dye allergy status; Z88.0 Allergy status to penicillin; X58.XXXA Exposure to other specified factors, initial encounter; Y93.89 Activity, other specified; Y92.89 Other specified places as the place of occurrence of the external cause; Y99.8 Other external cause status; Z72.89 Other problems related to lifestyle
CPT/HCPCS: 29827; 64415; A4565; A4930; C1713; J0171; J1100; J2250; J2405; J2704; J2795; J3490

== ENCOUNTER → 2021-02-23 | Outpatient (CLI) | payer OTHER ==
[~2021-02-23] MED LIST changes: -CLINDAMYCIN 900MG PREMIX 50 ML IV PRN; +GADOTERATE 5 MMOL/10ML VIAL. IVP ONE; -HYDROmorphone 2 MG/ML VIAL IVP PRN; -IV RINGERS,LACTATED 1000ML 1,000 ML IV SCH; +LIDOCAINE 1% Multi-Dose 20 ML VIAL. INJ ONE; -MORPHINE SULFATE 2 MG/ML VIAL. IVP PRN; +OXYC1TAB19 PO; -PROCHLORPERAZINE 10 MG/2 ML VIAL. IVP PRN; -fentaNYL PF VIAL 100 MCG/2 ML VIAL IVP PRN
--- NOTE | 2021-02-23 11:48 | RAD ---
Examination: MR arthrogram left shoulder HISTORY: History of adhesive capsulitis left shoulder, decreased range of motion COMPARISON: 10/19/2020 TECHNIQUE: Multiplanar, multisequence MR imaging of the left shoulder performed after arthrogram inje ction. FINDINGS: The long head of the biceps tendon within the bicipital groove. The attachment of the long head the b iceps tendon to the superior labral anchor grossly appears intact. The attachment of subscapularis te ndon grossly appears intact. Prior changes of rotator cuff repair. The screw from the prior rotator c uff repair appears to be slightly pulled out. There is extension of contrast into the subacromial sub deltoid bursa probably from synovitis from prior surgical repair. Moderate increased signal identifie d in the rotator cuff likely tendinosis. No evidence of full-thickness tear evident. The visualized l abrum grossly appears unremarkable Mild degenerative changes acromioclavicular joint. The acromion is type II. The muscle bulk grossly a ppears unremarkable. Fat is present within the rotator interval. IMPRESSION: 1. Prior changes of rotator cuff repair. The screw from the prior rotator cuff repair appears to be slightly pulled out. There is extension of contrast into the subacromial subdeltoid bursa probably fr om synovitis from prior surgical repair. 2. Moderate increased signal identified in the rotator cuff likely tendinosis. No evidence of full-t hickness tear evident. 3. Mild degenerative changes acromioclavicular joint. Electronically signed by: Victor M Gregg MD (02/23/2021 11:45 AM) [id number]
--- NOTE | 2021-02-23 12:07 | RAD ---
EXAM: Left shoulder joint injection WITH Fluoroscopic guidance DATE: 02/23/2021 9:02 AM CLINICAL HISTORY: Reason: ADHESIVE CAPSULITIS OF LEFT SHOULDER COMPARISON: None pertinent TECHNIQUE: The patient was informed of the indications and alternatives for this procedure as well as risks and benefits. No immediate contraindication identified. The patient provided informed, written consent. Laterality was confirmed by the entire team following a time out. Following initial Left shoulder joint localization, a suitable area was sterilely prepped and draped. Local anesthesia was administered with 1% xylocaine. With intermittent fluoroscopic observation, a 2 2-gauge spinal needle was advanced into the Left shoulder joint sheath/capsule. Subsequent infusion 1 2 mL of solution containing 0.1 mL gadolinium, 15 mL saline and 5 mL 1% percent lidocaine. Hemostasis with local pressure. Local clinical exam negative for immediate complication. Patient informed re local potential signs or symptoms that may indicate need to return to ER/Ordering physician for further evaluation. Patient informed re precautionary measures after intra-synovial in jection of anesthetic. Patient expressed understanding. Performing Physicians: Dr. Kimberly Marcelino Blood Loss: 0 cc Total Fluoroscopy time: 0.1 minutes Total spot images taken: 0 IMPRESSION: Successful intra-synovial injection of gadolinium contrast Left shoulder joint pre-MRI per clinical r equest. Electronically signed by: Elkin Marcelino MD (02/23/2021 12:05 PM) [id number] CUSTOM FIELD 1
== END | disposition home or self-care (01) ==
LOC: RAD 08:45
PROVIDERS: ATTEND Orthopaedic Surgery
DX: M75.02 Adhesive capsulitis of left shoulder (principal); M65.812 Other synovitis and tenosynovitis, left shoulder; I10 Essential (primary) hypertension; J45.909 Unspecified asthma, uncomplicated; K21.9 Gastro-esophageal reflux disease without esophagitis; Z87.891 Personal history of nicotine dependence; Z91.041 Radiographic dye allergy status; Z88.0 Allergy status to penicillin; Z88.8 Allergy status to other drugs, medicaments and biological substances; Z79.899 Other long term (current) drug therapy; Z98.890 Other specified postprocedural states
CPT/HCPCS: 23350; 73222; 77002; A9575; J3490

== ENCOUNTER → 2021-04-23 | Outpatient (CLI) | payer OTHER ==
[~2021-04-23] MED LIST changes: -GADOTERATE 5 MMOL/10ML VIAL. IVP ONE; -LIDOCAINE 1% Multi-Dose 20 ML VIAL. INJ ONE; +TAPE50TA10 PO
== END ==
LOC: LAB 13:01
PROVIDERS: ATTEND Orthopaedic Surgery
DX: Z01.812 Encounter for preprocedural laboratory examination (principal); Z20.822 Contact with and (suspected) exposure to COVID-19
CPT/HCPCS: U0003; U0005

== ENCOUNTER 2021-04-26 06:04 | Day surgery (SDC) | payer OTHER ==
[~2021-04-26] VITALS: Ht 172.7 cm; Wt 88.0 kg
[~2021-04-26 06:04] MED LIST changes: +HYDROmorphone 2 MG/ML VIAL IVP PRN; +IV RINGERS,LACTATED 1000ML 1,000 ML IV SCH; +PROCHLORPERAZINE 10 MG/2 ML VIAL. IVP PRN; +SCOPOLAMINE 1.5MG PATCH. TD ONE; -TAPE50TA10 PO; +fentaNYL PF VIAL 100 MCG/2 ML VIAL IVP PRN
[2021-04-26 06:35] VITALS: BP 176/91
[2021-04-26] MEDS ORDERED: ONDANSETRON PF 4 MG/2 ML VIAL. ONE (06:51)
[2021-04-26] MEDS ORDERED: DEXAMETHASONE SOD PHOS 4 MG/ML VIAL ONE ×2 (06:51→08:10)
[2021-04-26] MEDS ORDERED: SUCCINYLCHOLINE 200 MG/10 ML VIAL. ONE (06:51)
[2021-04-26] MEDS ORDERED: MIDAZOLAM HCL/PF 2 MG/2 ML VIAL. ONE (06:51)
[2021-04-26] MEDS ORDERED: PROPOFOL 10 MG/ML (20ML) VIAL. IV ONE (06:51)
[2021-04-26] MEDS ORDERED: fentaNYL PF VIAL 100 MCG/2 ML VIAL ONE ×2 (06:51→08:28)
[2021-04-26] MEDS ORDERED: LIDOCAINE 2% PF 5 ML VIAL. ONE (06:51)
[2021-04-26] MEDS ORDERED: EPINEPHrine VIAL 30 MG/30 ML VIAL ONE (07:04)
[2021-04-26] MEDS ORDERED: ROPIVacaine 0.5% PF 20 ML VIAL. ONE ×2 (07:08→10:41)
[2021-04-26] MEDS ORDERED: LIDOCAINE 1% PF 5 ML VIAL. ONE (07:10)
[2021-04-26] MEDS ORDERED: KETOROLAC 30 MG/ML VIAL. ONE (07:10)
[2021-04-26] MEDS ORDERED: ePHEDrine PF IN SALINE 50 MG/10 ML SYRINGE. IV ONE (08:26)
[2021-04-26] MEDS ORDERED: TAPE50TA10 PO (10:11)
--- NOTE | 2021-04-26 10:16 | DISCH ---
DISCHARGE INSTRUCTIONS Condition on Discharge Condition on Discharge: Stable Activity After Discharge Activity Instructions for Disc: Other, see below (Fine motor use with elbow at side only such as eating writing typing, no lifting away from side) Weight Bearing Status after Di: Non weight bearing Diet after Discharge Diet after Discharge: Regular Wound Incision Care Wound/Incision Care: Ice to area for comfort, Change dressing (Remove dressing in 2 days may then shower no soaking until sutures removed) Community/Resources/Services Services at Discharge: PT EVALUATE & TREAT (Immediate passive range of motion only; performed PASTA rotator cuff repair and also capsular release manipulation for frozen shoulder) Contacting the after DC Call your doctor for: Concerns you may have Follow-Up Follow up with: Dr. Lucia 7 to 10 days ALESSANDRA LUCIA MD Apr 26, 2021 10:16
[2021-04-26] MEDS: fentaNYL PF VIAL 100 MCG/2 ML VIAL IVP PRN ×4 (10:20→11:50)
[2021-04-26] MEDS ORDERED: hydrALAZINE 20 MG/ML VIAL. ONE (10:36)
[2021-04-26] MEDS: MORPHINE SULFATE 2 MG/ML INJ. IVP PRN ×2 (10:40→11:10)
[2021-04-26] MEDS ORDERED: hydrALAZINE 20 MG/ML VIAL. IVP PRN (10:45)
[2021-04-26] MEDS ORDERED: oxyCODONE/APAP 7.5/325 1 TAB TABLET PO ONE (11:00)
[2021-04-26] MEDS ORDERED: traMADol 50 MG TABLET PO ONE (11:15)
[2021-04-26 11:40] VITALS: BP 146/85
--- NOTE | 2021-04-26 18:13 | PDOC4 ---
Operative Note Operative Note Date of surgery: 04/26/2021 Preoperative diagnosis: Left shoulder acromioclavicular joint pain and prominent lateral row anchor Postoperative diagnosis: Same with acromioclavicular joint degenerative change, adhesive capsulitis, and high-grade undersurface PASTA rotator cuff tear Operative procedure: Left shoulder arthroscopy capsular release removal of prominent lateral row anchor arthroscopic rotator cuff repair and distal clavicle excision Surgeon Khari Assist: Bernabe Alberts electrician's assistant Anesthesia: General plus scalene block Estimated blood loss 5 cc Complications: None Operative indications: Patient is a 50-year-old female that underwent previous rotator cuff repair but has pain and difficulty elevation of the shoulder with weakness and MRI showed overall an intact reattachment of the supraspinatus tendon but prominence of the lateral row anchor which corresponded to 1 specific area of tenderness and she is also tender over the acromioclavicular joint on palpation and compression. I had gone over with her my recommendation for exploration with planned removal of the prominent anchor and distal clavicle excision along with addressing any other pathological conditions and we talked through risks benefits postoperative course of surgical treatment including the possibility of infection nerve or blood vessel damage continued pain medical or other anesthetic complications among others all her questions were answered she wishes to proceed with surgical evaluation and treatment. Operative text: Patient was identified procedure verified patient placed in the supine position on the operating table. After adequate amounts of general anesthesia were administered plus a pre-existing scalene block patient was placed in the decubitus position left side up on the operating table and all bony prominences were well-padded. Left shoulder was first examined under anesthesia and found to have significant limitations in her terminal elevation of about a 60 degree deficit as well as abduction in external rotation about a 40 degree deficit and about a 20 degree deficit of terminal internal rotation. The left shoulder was then prepped and draped in standard sterile fashion placed in the arthroscopic arm [place] with a total of 15 pounds of traction and after timeout was performed patient procedure identified and verified a standard p osterior portal was established an anterior portal established using spinal needle localization and the shoulder joint was systematically examined. While there was some mild superior labral fraying trimmed back to stable tissue using the arthroscopic shaver no evidence of a SLAP tear or separation of the superior glenoid or subluxation of the biceps was noted. She did have adhesive capsulitis and capsular release was carried out. She also had a high-grade partial-thickness undersurface tear of the distal supraspinatus insertion without complete separation on the bursal surface. Bursa was cleared to allow visualization and removal of the prominent anchor. Distal clavicle excision was carried out to approximately 1 cm removal of the distal clavicle for a total space of 12 mm preserving the surrounding joint capsule for stability. The rotator cuff was then thoroughly probed from the bursal side and while no defect existed at the lateral insertion the undersurface Posta tear remained a concern and was repaired with a total of 2 juggernaut anchors placed along the medial row and repair was carried out by tying the 2 ends of the suture together and completing the repair by tying the transverse sutures with sliding locking knots backed up by alternating post half hitches excellent apposition was noted completing the Pasta repair. The repair was checked under all degrees of internal/external rotation and full range of motion carried out following capsular release. The joint was then drained of arthroscopic fluid portals closed with nylon suture. Sterile dressings were applied patient was placed in an immobilizer return to recovery room in stable condition having tolerated procedure well. Bernabe malagon assist was present for the procedure and assisted in patient positioning prepping draping retraction closure and dressings ALESSANDRA CRESPO MD Apr 26, 2021 18:12
== END 2021-04-26 13:04 | disposition home or self-care (01) ==
LOC: SURG 06:04
PROVIDERS: ATTEND Orthopaedic Surgery
DX: M75.02 Adhesive capsulitis of left shoulder (principal); M75.102 Unspecified rotator cuff tear or rupture of left shoulder, not specified as traumatic; I10 Essential (primary) hypertension; J45.909 Unspecified asthma, uncomplicated; K21.9 Gastro-esophageal reflux disease without esophagitis; M19.90 Unspecified osteoarthritis, unspecified site; F41.9 Anxiety disorder, unspecified; Z98.51 Tubal ligation status; Z98.890 Other specified postprocedural states; Z79.899 Other long term (current) drug therapy; Z72.89 Other problems related to lifestyle; Z88.0 Allergy status to penicillin; Z91.041 Radiographic dye allergy status; Z88.8 Allergy status to other drugs, medicaments and biological substances
CPT/HCPCS: 29819; 29824; 29827; 64415; A4209; A4565; A4930; C1713; J0171; J0330; J0360; J0690; J1100; J1885; J2250; J2270; J2405; J2704; J2795; J3010; J3490; A4223